=== PATIENT | female | born 2000 | race African-American/Black ===

== ENCOUNTER → 2019-07-26 | Emergency (ER) | payer OTHER ==
[~2019-07-26] VITALS: Ht 170.2 cm; Wt 115.7 kg
[~2019-07-26] MED LIST: [UNRECOGNIZED DRUG - OTHER]
[2019-07-26 01:13] LABS: ABSOLUTE NEUTROPHILS 5.1 thou/uL (1.4-8.2); BASOPHILS 0.7 % (0.0-2.0); EOSINOPHILS 2.7 % (0.0-3.0); HEMATOCRIT 38.1 % (37.0-47.0); LYMPHOCYTES 29.7 % (24.0-44.0); MCH 25.2 pg (26.0-34.0); MCHC 31.5 g/dL (28.0-37.0); MCV 80.1 fL (80.0-100.0); MONOCYTES 7.1 % (1.0-8.0); PLATELET COUNT 450 thou/uL (150-400); POLYS 59.8 % (36.0-66.0); RBC 4.76 mil/uL (4.20-5.00); WBC 8.6 thou/uL (4.0-11.0)
[2019-07-26 01:15] LABS: CALCIUM 9.7 mg/dL (8.5-10.1); CREATININE 0.8 mg/dL (0.6-1.0); POTASSIUM 3.8 mmol/L (3.5-5.1)
[2019-07-26 01:22] LABS: ALBUMIN 3.3 g/dL (3.4-5.0); TOTAL BILIRUBIN 0.1 mg/dL (<0.1-1.0); TOTAL PROTEIN 7.8 g/dL (6.4-8.2)
[2019-07-26 01:30] VITALS: BP 109/63
== END ==
LOC: ER 00:37
PROVIDERS: Student in an Organized Health Care Education/Training Program
DX: O03.4 Incomplete spontaneous abortion without complication (principal); Z3A.01 Less than 8 weeks gestation of pregnancy